=== PATIENT | female | born 1985 | race Caucasian/White ===

== ENCOUNTER 2022-12-13 10:08 | Emergency (ER) | payer BC ==
--- OUTSIDE RECORDS SUMMARY | 2022-12-13 10:11 | XMS REPORT | Continuity of Care Document ---
:1985 Author Organization [facility] t Address [address] [place] [address] Care Team Providers Name Role Phone Pcp, Patient Does Not Have A Primary Care Physician [id number] Jose Luis Koehler Attending Clinician Unavailable Nurse, [facility] Attending Clinician Unavailable Unknown, Attending Attending Clinician Unavailable UNKNOWN, ATTENDING Attending Clinician Unavailable Doctor Unassigned, [place] Attending Clinician Unavailable MICA CHEUNG Attending Clinician Unavailable Tonie Hartley Attending Clinician Mica Agee Attending Clinician Rosario Samaniego Attending Clinician ROSARIO DAVID Attending Clinician Unavailable Provider, [facility] Attending Clinician Unavailable REGLA BRANHAM Attending Clinician Unavailable Regla Branham MD Attending Clinician Payers Payer Name Policy Type Policy Number Effective Date Expiration Date S ource Problems Condition Condition Condition Status Onset Resolution Last Treating Co mments Source Name Details Category Date Date Treatment Clinician Date No known No known Disease Unive rs active active ity of problems problems [facility] Allergies, Adverse Reactions, Alerts Allergy Allergy Status Severity Reaction(s) Onset Inactive Treating Comm ents Source Name Type Date Date Clinician NO KNOWN Drug Active Univers ALLERGIE Class ity of S [facility] Social History Social Habit Start Date Stop Date Quantity Comments Source Exposure to 2022-12-03 2022-12-13 Not sure [facility] SARS-CoV-2 00:00:00 09:36:00 [place] [facility] (event) [place] Tobacco use and 2021-05-05 2021-05-05 Smokeless tobacco Un iversity of exposure 00:00:00 00:00:00 non-user [facility] Sex Ass[birth year] Universit y of 00:00:00 00:00:00 [facility] Smoking Status Start Date Stop Date Source Never smoked tobacco [facility] Medications Ordered Filled Start Stop Current Ordering Indication Dosage Frequency Signature Comments Components Source Medication Medication Date Date Medication? Clinician (SIG) Name Name hydrOXYzine 2020-08 Yes [id number] 25mg Take 1 Univers 25 mg 2-21 tablet by ity of tablet 00:00: mouth [place] 00 every 6 Medical (six) Branch hours as needed for Itching. hydrOXYzine 2020-08 Yes [id number] 25mg Take 1 Univers 25 mg 2-21 tablet by ity of tablet 00:00: mouth [place] 00 every 6 Medical (six) Branch hours as needed for Itching. hydrOXYzine 2020-08 Yes [id number] 25mg Take 1 Univers 25 mg 2-21 tablet by ity of tablet 00:00: mouth [place] 00 every 6 Medical (six) Branch hours as needed for Itching. predniSONE 2020-08- No [id number] Take 2 Univers 20 mg 2-21 12-30 tablets by ity of tablet 00:00: 05:59 mouth [place] 00 :00 daily for Medical 4 days, Branch THEN 1 tablet daily for 4 days. triamcinolo 2020- No [id number] 40mg Univers ne 05-13 ity of acetonide 19:15: 18:16 [place] (KENALOG) 00 :00 Medical injection Branch 40 mg triamcinolo 2020- No [id number] 40mg 40 mg, Univers ne 05-13 Intramuscu ity of acetonide 19:15: 18:16 [place], ONCE, [place] (KENALOG[place] 00 :00 1 dose, On Medi shelton injection Tue Branch 40 mg 05/13/21 at 1415, Routine methylPREDN 2020-[address] [facility] 05-13 mouth ity of (MEDROL, 00:00: SEE-INSTRU [place] as IRIS,) 4 mg 00 CTIONS. Medica l tablets follow Branch package directions methylPREDN 2020-[address] [facility] 05-13 mouth ity of (MEDROL, 00:00: SEE-INSTRU [place] as IRIS,) 4 mg 00 CTIONS. Medica l tablets follow Branch package directions methylPREDN 2020-[address] [facility] 05-13 mouth ity of (MEDROL, 00:00: SEE-INSTRU [place] as IRIS,) 4 mg 00 CTIONS. Medica l tablets follow Branch package directions methylPREDN 2020-[address] [facility] 05-13 mouth ity of (MEDROL, 00:00: SEE-INSTRU [place] as IRIS,) 4 mg 00 CTIONS. Medica l tablets follow Branch package directions hydrOXYzine 2020- No 25mg Take 1 Univers 25 mg 05-13 1009 tablet by ity of tablet 00:00: 04:59 mouth [place] 00 :00 every 6 Medical (six) Branch hours as needed for Itching for up to 10 days. triamcinolo 2020-2020- No Apply to [facility] 05-13 10-06 area(s) 2 ity of acetonide 00:00: 04:59 (two) [place] 0.1 % 00 :00 times Medical ointment daily for Branch 7 days. triamcinolo 2020-0 2020- No 40mg [facility] 05-05 ity of acetonide 21:00: 20:01 [place] (KENALOG) 00 :00 Medical injection Branch 40 mg triamcinolo 2020-2020- No 40mg 40 mg, [facility] 05-05 Intramuscu ity of acetonide 21:00: 20:01 [place], ONCE, [place] (KENALOG) 00 :00 1 dose, On Medi shelton injection Mon Branch 40 mg 05/05/21 at 1600, Routine cetirizine 2020-0 Yes 10mg Take 1 Univers (ZYRTEC) 10 9-20 tablet by ity of mg tablet 00:00: mouth [place] 00 daily. Medical Branch cetirizine Yes 10mg Take 1 Univers (ZYRTEC) 10 9-20 tablet by ity of mg tablet 00:00: mouth [place] 00 daily. Medical Branch cetirizine Yes 10mg Take 1 Univers (ZYRTEC) 10 9-20 tablet by ity of mg tablet 00:00: mouth [place] 00 daily. Medical Branch cetirizine Yes 10mg Take 1 Univers (ZYRTEC) 10 9-20 tablet by ity of mg tablet 00:00: mouth [place] 00 daily. Medical Branch cetirizine Yes 10mg Take 1 Univers (ZYRTEC) 10 9-20 tablet by ity of mg tablet 00:00: mouth [place] 00 daily. Medical Branch cetirizine Yes 10mg Take 1 Univers (ZYRTEC) 10 9-20 tablet by ity of mg tablet 00:00: mouth [place] 00 daily. Medical Branch cetirizine Yes 10mg Take 1 Univers (ZYRTEC) 10 9-20 tablet by ity of mg tablet 00:00: mouth [place] 00 daily. [facility] Vital Signs Vital Name Observation Time Observation Value Comments Source Systolic blood 2022-12-13 14:45:00 120 mm[Hg] Univer sity of pressure [facility] Diastolic blood 2022-12-13 14:45:00 79 mm[Hg] [facility] rs[facility] pressure [facility] Heart rate 2022-12-13 14:45:00 71 /min [facility] Body temperature 2022-12-13 14:45:00 37 Christianne [facility] Respiratory rate 2022-12-13 14:45:00 20 /min [facility] Body height 2022-12-13 14:45:00 167.6 cm [facility] Body weight 2022-12-13 14:45:00 111.041 kg [facility] BMI 2022-12-13 14:45:00 39.51 kg/m2 Universi ty of [place] [facility] Oxygen saturation in 2022-12-13 14:45:00 100 /min University of Arterial blood by [place] [facility] [place] Pulse oximetry Branch Systolic blood 2021-08-05 15:47:00 128 mm[Hg] Univer sity of pressure [place] [facility] Diastolic blood 2021-08-05 15:47:00 78 mm[Hg] Unive rsity of pressure [place] [facility] Heart rate 2021-08-05 15:47:00 66 /min [facility]i ty [facility] [place] [facility] Body temperature 2021-08-05 15:47:00 36.67 Christianne Univ ersity of [place] [facility] Respiratory rate 2021-08-05 15:47:00 17 /min Univ ersity of [place] [facility] Body height 2021-08-05 15:47:00 167.6 cm [facility] [place] [facility] Body weight 2021-08-05 15:47:00 104.327 kg [facility] [place] [facility] BMI 2021-08-05 15:47:00 37.12 kg/m2 Universi ty [facility] [place] [facility] Oxygen saturation in 2021-08-05 15:47:00 100 /min University of Arterial blood by [place] [facility] [place] Pulse oximetry Branch Oxygen saturation in 2021-05-13 17:57:00 99 /min University of Arterial blood by [place] [facility] Pulse oximetry Branch Systolic blood 2021-05-13 17:57:00 109 mm[Hg] Univer sity of pressure [place] [facility] Diastolic blood 2021-05-13 17:57:00 69 mm[Hg] Unive rsity of pressure [place] [facility] Heart rate 2021-05-13 17:57:00 76 /min [facility]i ty [facility] [place] [facility] Body temperature 2021-05-13 17:57:00 37.11 Christianne Univ ersity of [place] [facility] Respiratory rate 2021-05-13 17:57:00 16 /min Univ ersity of [place] [facility] Body height 2021-05-13 17:57:00 167.6 cm [facility]i [facility] [place] [facility] Body weight 2021-05-13 17:57:00 104.327 kg [facility]i [facility] [place] [facility] BMI 2021-05-13 17:57:00 37.12 kg/m2 [facility]i ty [facility] [place] [facility] Systolic blood 2021-05-05 19:52:00 112 mm[Hg] Univer sity of pressure [facility] Diastolic blood 2021-05-05 19:52:00 70 mm[Hg] Unive rsity of pressure [facility] Heart rate 2021-05-05 19:52:00 73 /min [facility] Body temperature 2021-05-05 19:52:00 36.61 Christianne [facility] Respiratory rate 2021-05-05 19:52:00 16 /min [facility] Body height 2021-05-05 19:52:00 167.6 cm [facility] Body weight 2021-05-05 19:52:00 104.418 kg [facility] BMI 2021-05-05 19:52:00 37.16 kg/m2 [facility] Oxygen saturation in 2021-05-05 19:52:00 99 /min [facility] Arterial blood by [facility] [place] [facility] Pulse oximetry Branch Procedures Procedure Date / Time Performed Performing Clinician [facility] e ASSIGNMENT OF BENEFITS 2022-12-13 14:37:57 Doctor Unassigned, No [facility] ASSIGNMENT OF BENEFITS 2021-05-13 17:49:21 Doctor Unassigned, No [facility] Encounters Start End Encounter Admission Attending Care Care Encounter Source Date/Time Date/Time Type Type Clinicians Facility Department ID 2022-07-27 Outpatient Koehler, [facility] [id number] Common 12:56:01 [facility] [address] [facility] 2022-06-25 Outpatient Koehler, [facility] [id number] Common 09:41:02 [facility] [address] [facility] 2022-06-04 Outpatient Koehler, [facility] [id number] Common 13:12:02 [facility] 2022-12-13 2022-12-13 Nurse Nurse, [facility] [id number] [facility] 09:45:00 10:05:00 Visit Unknown, Attending HEALTH [id number] ity of [place] [id number] [place] as KEMAR?BLEA [id number] [address] MEDICAL OFFICE BUILDING 2022-12-13 2022-12-13 Outpatient R UNKNOWN, [facility] [id number] Univers 09:45:00 09:45:00 ATTENDING ity [facility] 2022-12-13 2022-12-13 Outpatient R UNKNOWN, [facility] [id number] Univers 09:40:00 09:40:00 ATTENDING ity [facility] 2022-12-13 2022-12-13 Orders Doctor EDGE [id number] Univers 00:00:00 00:00:00 Only Unassigned, THU[facility] [id number] [facility] [id number] [place] [phone] [address] 2021-08-05 2021-08-05 [facility] [id number] Univers 10:00:00 10:13:35 [facility] 2021-08-05 2021-08-05 Urgent Tonie Constantino [facility] [id number] Univers 10:00:00 10:13:35 [facility] [id number] ity [facility] [id number] [place] KEMAR?BLEA [id number] [address] [facility] 2021-08-05 2021-08-05 Outpatient R [facility] [id number] Univers 10:00:00 10:00:00 [id number] ity [facility] 2021-05-13 2021-05-13 [facility] [id number] Univers 12:50:14 13:22:46 Care Rosario [email or web address] [facility] [id number] ity of [place] [id number] [place] as Kemar?Blea [id number] [address] Medical Office Building 2021-05-13 2021-05-13 Outpatient R [facility] [id number] Univers 13:00:00 13:00:00 [id number] ity [facility] 2021-05-132021-05-13 Outpatient R JOANN [facility] [id number] Univers 13:00:00 13:00:00 ROSARIO lynch o f [facility] 2021-05-13 2021-05-13 Orders Doctor KELY [id number] Univers 00:00:00 00:00:00 Only Unassigned, THUY [id number] ity of [place] [facility] [id number] [place] as [phone] [address] 2021-05-09 2021-05-09 Telephone Provider, [facility] [id number] Univers 00:00:00 00:00:00 [facility] [id number] it y of Urgent Care [place] [id number] [place] Kemar?Blea [id number] [address] Medical Office Building 2021-05-05 2021-05-05 [facility] [id number] Univers 18:00:00 18:00:00 REGLA itmonserrat of [facility] 2021-05-05 2021-05-05 [facility] [id number] Univers 14:42:20 15:02:20 Care [facility] [id number] it y of [place] [id number] [place] as Kemar?Blea [id number] [address] Medical Office Building Results This patient has no known results.
[2022-12-13] MEDS ORDERED: FAMOTIDINE 20 MG/2 ML VIAL IV ONE (10:44)
[2022-12-13] MEDS ORDERED: NA CHLORIDE 0.9% 1,000 ML ONE (10:44)
[2022-12-13 10:57] LABS: Specific Gravity < 1.005 (1.005-1.030)
[2022-12-13 11:01] LABS: Specific Gravity < 1.005 (1.005-1.030); Urine Bacteria 20-50 /HPF (<20); Urine Bilirubin NEGATIVE (Negative); Urine Blood Negative (Negative); Urine Clarity Turbid (Clear); Urine Color Light-Yellow (Yellow); Urine Glucose NEGATIVE (Negative); Urine Protein NEGATIVE (Negative); Urine Urobilinogen Normal (Normal); Urine pH 6.5 (5.0-7.0)
[2022-12-13 11:03] LABS: Absolute Lymphocytes (CBC) 1.5 K/uL (0.7-4.9); Hematocrit 31.3 % (36.0-45.0); Lymphocytes % 24.2 % (15.3-44.8); MCV 72.3 fL (80-100); MPV 8.7 fL (7.6-11.3); RBC Red Blood Cell Count 4.33 M/uL (3.86-4.86)
[2022-12-13] MEDS ORDERED: NA CHLORIDE 0.9% 50 ML ONE (11:13)
[2022-12-13] MEDS ORDERED: CEFOXITIN SODIUM 1 GM/VIAL ONE (11:13)
[2022-12-13 11:27] LABS: Albumin 3.7 g/dL (3.4-5.0); Bilirubin Total 0.9 mg/dL (0.2-1.0); Potassium 3.9 mEq/L (3.5-5.1); Protein, Total 7.1 g/dL (6.4-8.2)
--- NOTE | 2022-12-13 11:43 | RAD REPORT ---
EXAM DESCRIPTION: US - Abdomen Exam Limited - 12/13/2022 11:31 am CLINICAL HISTORY: ABD PAIN COMPARISON: No comparisons FINDINGS: The gallbladder demonstrates no gallstones. No pericholecystic fluid or gallbladder wall t hickening. The common bile duct is normal measuring 4 mm. The liver demonstrates no findings of intrahepatic biliary dilatation. IMPRESSION: Unremarkable examination.
--- NOTE | 2022-12-13 12:24 | ER ---
Nurse's Notes [facility] Name: Araceli Min Age: 37 yrs Sex: Female : 1985 Arrival Date: 12/13/2022 Time: 10:08 Bed 17 Private MD: Jose Luis Koehler Diagnosis: UTI/ Urinary tract infection, site not specified;Abdominal pain, Generalized;Iron deficiency anemia, unspecified Presentation: 12/13 10:16 Chief complaint: Patient states: sharp pain in right mid back radiating under her right iw ribs , started on , denies n/v/d, denies urinary symptoms. Coronavirus screen: At this time, the client does not indicate any symptoms associated with coronavirus-19. Ebola Screen: Patient negative for fever greater than or equal to 101.5 degrees Fahrenheit, and additional compatible Ebola Virus Disease symptoms Patient denies exposure to infectious person. Patient denies travel to an Ebola-affected area in the 21 days before illness onset. No symptoms or risks identified at this time. Initial Sepsis Screen: Does the patient meet any 2 criteria? No. Patient's initial sepsis screen is negative. Does the patient have a suspected source of infection? No. Patient's initial sepsis screen is negative. Risk Assessment: Do you want to hurt yourself or someone else? Patient reports no desire to harm self or others. Onset of symptoms was December 10, 2022. 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 - Social history:: Smoking status: Reported history of juuling and/or vaping. Screenin:28 [facility] ED Fall Risk Assessment (Adult) History of falling in the last 3 months, kc6 including since admission No falls in past 3 months (0 pts) Confusion or Disorientation No (0 pts) Intoxicated or Sedated No (0 pts) Impaired Gait No (0 pts) Mobility Assist Device Used No (0 pt) Altered Elimination No (0 pt) Score/Fall Risk Level 0 - 2 = Low Risk Oriented to surroundings, Maintained a safe environment, Educated pt \T\ family on fall prevention, incl call for assistance when getting out of bed, Assessed \T\ reinforced patient's understanding of fall precautions, Hourly rounding (assess needs \T\ fall precautionary measures) done. Abuse screen: Denies threats or abuse. Denies injuries from another. Nutritional screening: No deficits noted. Tuberculosis screening: No symptoms or risk factors identified. Assessment: 10:28 General: Appears in no apparent distress. uncomfortable, Behavior is calm, cooperative, kc6 appropriate for age. Pain: Complains of pain in right upper quadrant and right lower quadrant, right flank Pain currently is 7 out of 10 on a pain scale. Quality of pain is described as sharp, stabbing. Neuro: Ryan Agitation-Sedation Scale (RASS): 0 - Alert and Calm Level of Consciousness is awake, alert, obeys commands, Oriented to person, place, time, situation, Appropriate for age. Cardiovascular: Capillary refill < 3 seconds. Respiratory: Airway is patent Trachea midline Respiratory effort is even, unlabored, Respiratory pattern is regular, symmetrical. GI: No signs and/or symptoms were reported involving the gastrointestinal system. Abdomen is flat, non-distended, Bowel sounds present X 4 quads. Abd is soft X 4 quads Abdomen is tender to palpation in right upper quadrant and right lower quadrant Patient currently denies diarrhea, nausea, vomiting. : No signs and/or symptoms were reported regarding the genitourinary system. Urine is clear, Denies burning with urination, urinary frequency, urgency. EENT: No signs and/or symptoms were reported regarding the EENT system. Derm: No signs and/or symptoms reported regarding the dermatologic system. Skin is intact, Skin is pink, warm \T\ dry. Musculoskeletal: No signs and/or symptoms reported regarding the musculoskeletal system. Circulation, motion, and sensation intact. Capillary refill < 3 seconds, Range of motion: intact in all extremities. 11:28 Reassessment: Patient appears in no apparent distress at this time. No changes from kc6 previously documented assessment. Patient and/or family updated on plan of care and expected duration. Pain level reassessed. Patient is alert, oriented x 3, equal unlabored respirations, skin warm/dry/pink. 12:38 Reassessment: Patient appears in no apparent distress at this time. Patient and/or iw family updated on plan of care and expected duration. Pain level reassessed. Patient is alert, oriented x 3, equal unlabored respirations, skin warm/dry/pink. Vital Signs: 10:16 BP 129 / 87; Pulse 69; Resp 16; Temp 98.1; Pulse Ox 100% on R/A; Weight 108.86 kg; iw Height 5 ft. 6 in. ; Pain 7/10; 10:30 BP 128 / 79; Pulse 66; Resp 18 S; Pulse Ox 96% on R/A; Pain 7/10; kc6 11:28 BP 104 / 78; Pulse 73; Resp 19 S; Pulse Ox 96% on R/A; kc6 12:37 BP 117 / 67; Pulse 58; Resp 16; Pulse Ox 100% on R/A; iw 10:16 Body Mass Index 38.74 (108.86 kg, 167.64 cm) iw 10:16 Pain Scale: Adult iw 10:30 Pain Scale: Adult kc6 ED Course: 10:11 Patient arrived in ED. mr 10:11 Jose Luis Koehler DO is Private Physician. mr 10:18 Triage completed. iw 10:19 Arm band placed on. iw 10:23 Anika Sauer FNP-C is PHCP. snw 10:23 Ziyad Stover MD is Attending Physician. snw 10:25 Taylor Cleary, NIDA is Primary Nurse. kc6 10:28 Patient has correct armband on for positive identification. Bed in low position. Call kc6 light in reach. Side rails up X 1. Adult w/ patient. 10:51 Inserted saline lock: 20 gauge in right antecubital area, using aseptic technique. kc6 Blood collected. 11:33 US Abdomen Limited In Process Unspecified. EDMS 12:23 Jose Luis Koehler DO is Referral Physician. snw 12:37 No provider procedures requiring assistance completed. IV discontinued, intact, iw bleeding controlled, No redness/swelling at site. Pressure dressing applied. Administered Medications: 10:51 Drug: NS 0.9% IV 1000 ml Route: IV; Rate: 1 bolus; Site: right antecubital; kc6 12:47 Follow up: Response: No adverse reaction; IV Status: Completed infusion kc6 10:51 Drug: Famotidine IVP 20 mg Route: IVP; Site: right antecubital; kc6 11:15 Follow up: Response: No adverse reaction; Pain is decreased kc6 11:12 Drug: cefOXitin IVPB 1 grams Route: IVPB; Infused Over: 30 mins; Site: right kc6 antecubital; 11:45 Follow up: Response: No adverse reaction; IV Status: Completed infusion; IV Intake: [id number] Medication: 12:48 VIS not applicable for this client. iw Intake: 11:45 IV: 50ml; Total: 50ml. kc6 Outcome: 12:24 Discharge ordered by MD. snbrittny 12:47 Discharged to home ambulatory, with family. iw 12:47 Condition: good 12:47 Discharge instructions given to patient, family, Instructed on discharge instructions, follow up and referral plans. medication usage, Demonstrated understanding of instructions, follow-up care, medications, Prescriptions given X 3. 12:48 Patient left the ED. iw Signatures: Dispatcher [employer] EDMS Anika Sauer, SPECIAL DIET COOK-C SPECIAL DIET COOK-Shyann ColePaula Michelle Mcneil, RN RN Taylor Mooney RN RN kc6
--- NOTE | 2022-12-13 12:25 | EDPHYS ---
Physician Documentation [facility] Name: Araceli Min Age: 37 yrs Sex: Female : 1985 Arrival Date: 12/13/2022 Time: 10:08 Bed 17 Private MD: [facility] ED Physician Ziyad Stover HPI: 12/13 11:08 This 37 yrs old Female presents to ER via Ambulatory with complaints of Abdominal Pain, snw Back Pain. 11:08 The patient presents with abdominal pain in the epigastric area, in the upper abdomen, snw in the right upper quadrant. Onset: The symptoms/episode began/occurred suddenly, 3 day(s) ago, and became persistent last night. The symptoms radiate to right back. Associated signs and symptoms: Pertinent positives: nausea. The symptoms are described as sharp, stabbing. Severity of pain: At its worst the pain was moderate. The patient has not experienced similar symptoms in the past. just started mounjaro. 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 - Social history:: Smoking status: Reported history of juuling and/or vaping. ROS: 11:07 Constitutional: Negative for fever, chills, and weight loss, Eyes: Negative for injury, snw pain, redness, and discharge, ENT: Negative for injury, pain, and discharge, Neck: Negative for injury, pain, and swelling, Cardiovascular: Negative for chest pain, palpitations, and edema, Respiratory: Negative for shortness of breath, cough, wheezing, and pleuritic chest pain, : Negative for injury, bleeding, discharge, and swelling, MS/Extremity: Negative for injury and deformity, Skin: Negative for injury, rash, and discoloration, Neuro: Negative for headache, weakness, numbness, tingling, and seizure, Psych: Negative for depression, anxiety, suicide ideation, homicidal ideation, and hallucinations. 11:07 Abdomen/GI: Positive for abdominal pain, nausea. 11:07 Back: Positive for radiated pain, of the right subscapular area and right mid back. Exam: 11:03 Skin: Warm, dry with normal turgor. Normal color with no rashes, no lesions, and no snw evidence of cellulitis. Neuro: Awake and alert, GCS 15, oriented to person, place, time, and situation. Cranial nerves II-XII grossly intact. Motor strength 5/5 in all extremities. Sensory grossly intact. Cerebellar exam normal. Normal gait. Psych: Awake, alert, with orientation to person, place and time. Behavior, mood, and affect are within normal limits. 11:03 Constitutional: This is a well developed, well nourished patient who is awake, alert, and in no acute distress. Head/Face: Normocephalic, atraumatic. Eyes: Pupils equal round and reactive to light, extra-ocular motions intact. Lids and lashes normal. Conjunctiva and sclera are non-icteric and not injected. Cornea within normal limits. Periorbital areas with no swelling, redness, or edema. ENT: Nares patent. No nasal discharge, no septal abnormalities noted. Tympanic membranes are normal and external auditory canals are clear. Oropharynx with no redness, swelling, or masses, exudates, or evidence of obstruction, uvula midline. Mucous membranes moist. Neck: Trachea midline, no thyromegaly or masses palpated, and no cervical lymphadenopathy. Supple, full range of motion without nuchal rigidity, or vertebral point tenderness. No Meningismus. Chest/axilla: Normal chest wall appearance and motion. Nontender with no deformity. No lesions are appreciated. Cardiovascular: Regular rate and rhythm with a normal S1 and S2. No gallops, murmurs, or rubs. Normal PMI, no JVD. No pulse deficits. Respiratory: Lungs have equal breath sounds bilaterally, clear to auscultation and percussion. No rales, rhonchi or wheezes noted. No increased work of breathing, no retractions or nasal flaring. Abdomen/GI: Soft, mildly tender to right upper and lower quad, with normal bowel sounds. No distension or tympany. No guarding or rebound. 11:04 Back: No spinal tenderness. No costovertebral tenderness. Full range of motion. MS/ snw Extremity: Pulses equal, no cyanosis. Neurovascular intact. Full, normal range of motion. Vital Signs: 10:16 BP 129 / 87; Pulse 69; Resp 16; Temp 98.1; Pulse Ox 100% on R/A; Weight 108.86 kg; iw Height 5 ft. 6 in. ; Pain 7/10; 10:30 BP 128 / 79; Pulse 66; Resp 18 S; Pulse Ox 96% on R/A; Pain 7/10; kc6 11:28 BP 104 / 78; Pulse 73; Resp 19 S; Pulse Ox 96% on R/A; kc6 12:37 BP 117 / 67; Pulse 58; Resp 16; Pulse Ox 100% on R/A; iw 10:16 Body Mass Index 38.74 (108.86 kg, 167.64 cm) iw 10:16 Pain Scale: Adult iw 10:30 Pain Scale: Adult kc6 MDM: 10:24 Patient medically screened. snw 12:50 Differential diagnosis: bowel obstruction, cholecystitis, Cholelithiasis, gastritis, snw Hepatitis, pancreatitis, Pyelonephritis, Ureterolithiasis. Data reviewed: vital signs, nurses notes, lab test result(s), radiologic studies. I considered the following discharge prescriptions or medication management in the emergency department Medications were administered in the Emergency Department. See MAR. Counseling: I had a detailed discussion with the patient and/or guardian regarding: the historical points, exam findings, and any diagnostic results supporting the discharge/admit diagnosis, lab results, radiology results, the need for outpatient follow up, for definitive care, to return to the emergency department if symptoms worsen or persist or if there are any questions or concerns that arise at home. Response to treatment: the patient's symptoms have mildly improved after treatment. Special discussion: Based on the patient's Hx, exam, and Dx evaluation, there is no indication for emergent surgery or inpatient Tx. It is understood by the patient/guardian that if the Sx's persist or worsen they need to return immediately for re-evaluation. Based on the history and exam findings, there is no indication for further emergent testing or inpatient evaluation. I discussed with the patient/guardian the need to see the primary care provider for further evaluation of the symptoms. 12/13 10:34 Order name: CBC with Diff; Complete Time: 11:11 snw 12/13 10:34 Order name: CMP; Complete Time: 11:28 snw 12/13 10:34 Order name: Lipase; Complete Time: 11:28 snw 12/13 10:34 Order name: Test, Urine; Complete Time: 11:02 snw 12/13 10:34 Order name: Urinalysis w/ reflexes; Complete Time: 11:02 snw 12/13 10:34 Order name: Troponin High Sensitivity; Complete Time: 11:28 snw 12/13 11:02 Order name: Test, Serum; Complete Time: 11:38 snw 12/13 10:34 Order name: US Abdomen Limited; Complete Time: 11:59 snw 12/13 10:34 Order name: IV Saline Lock; Complete Time: 10:51 snw 12/13 10:34 Order name: Labs collected and sent; Complete Time: 10:51 snw Administered Medications: 10:51 Drug: NS 0.9% IV 1000 ml Route: IV; Rate: 1 bolus; Site: right antecubital; kc6 12:47 Follow up: Response: No adverse reaction; IV Status: Completed infusion 6 10:51 Drug: Famotidine IVP 20 mg Route: IVP; Site: right antecubital; kc6 11:15 Follow up: Response: No adverse reaction; Pain is decreased kc6 11:12 Drug: cefOXitin IVPB 1 grams Route: IVPB; Infused Over: 30 mins; Site: right kc6 antecubital; 11:45 Follow up: Response: No adverse reaction; IV Status: Completed infusion; IV Intake: [id number] Disposition: 12:48 I reviewed the patient's care provided by the Advanced Practice Provider and agree with jr11 the diagnosis and treatment plan. Disposition Summary: 12/13/22 12:24 Discharge Ordered Location: Home snw Condition: Stable snw Diagnosis - UTI/ Urinary tract infection, site not specified snw - Abdominal pain, Generalized snw - Iron deficiency anemia, unspecified snw Followup: snw - With: Emergency Department - When: As needed - Reason: Worsening of condition Followup: snw - With: Jose Luis Koehler, DO - When: 1 - 2 days - Reason: Recheck today's complaints, Continuance of care, Re-evaluation by your physician Discharge Instructions: - Discharge Summary Sheet snw - Abdominal Pain, Adult snw - Iron Deficiency Anemia, Adult snw - Iron-Rich Diet snw - Urinary Tract Infection, Adult snw - Rehydration, Adult snw Forms: - Work release form snw - Medication Reconciliation Form snw - Thank You Letter snw - Antibiotic Education snw - Prescription Opioid Use snw Prescriptions: - Augmentin 875-125 mg Oral Tablet - take 1 tablet by ORAL route every 12 hours for 10 days; 20 tablet; Refills: 0, snw Product Selection Permitted - promethazine 25 mg Oral Tablet - take 1 tablet by ORAL route every 6 hours As needed; 20 tablet; Refills: 0, snw Product Selection Permitted - dicyclomine 20 mg Oral Tablet - take 1 tablet by ORAL route 3 times per day; 30 tablet; Refills: 0, Product snw Selection Permitted 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 Head/Face: Normocephalic, atraumatic. Eyes: Pupils equal round and reactive to light, extra-ocular motions intact. Lids and lashes normal. Conjunctiva and sclera are non-icteric and not injected. Cornea within normal limits. Periorbital areas with no swelling, redness, or edema. ENT: Nares patent. No nasal discharge, no septal abnormalities noted. Tympanic membranes are normal and external auditory canals are clear. Oropharynx with no redness, swelling, or masses, exudates, or evidence of obstruction, uvula midline. Mucous membranes moist. Neck: Trachea midline, no thyromegaly or masses palpated, and no cervical lymphadenopathy. Supple, full range of motion without nuchal rigidity, or vertebral point tenderness. No Meningismus. Chest/axilla: Normal chest wall appearance and motion. Nontender with no deformity. No lesions are appreciated. Cardiovascular: Regular rate and rhythm with a normal S1 and S2. No gallops, murmurs, or rubs. Normal PMI, no JVD. No pulse deficits. Respiratory: Lungs have equal breath sounds bilaterally, clear to auscultation and percussion. No rales, rhonchi or wheezes noted. No increased work of breathing, no retractions or nasal flaring. Abdomen/GI: Soft, non-tender, with normal bowel sounds. No distension or tympany. No guarding or rebound. No evidence of tenderness throughout. snw 11: 11:03 Back: pain, that is moderate, of the right scapular area, normal spinal alignment snw noted, CVA tenderness, is absent, snw : 11:03 Musculoskeletal/extremity: chronically dislocated left shoulder. snw snw : 11:03 Neuro: hard of hearing, snw snw
[2022-12-13 13:03] VITALS: TEMP 98.1
[2022-12-13 13:16] VITALS: BP 117/67; O2SAT 100
== END 2022-12-13 12:48 | disposition home or self-care (01) ==
LOC: ER 10:08
DX: N39.0 Urinary tract infection, site not specified (principal); D50.9 Iron deficiency anemia, unspecified
CPT/HCPCS: 85025; 81001; 36415; 84703; 81025; 84484; 83690; 80053; 76705; J0694; J7030; 96361; 96365; 96375; 99284

== ENCOUNTER → 2023-08-31 | Emergency (ER) | payer BC ==
--- OUTSIDE RECORDS SUMMARY | 2023-08-31 09:04 | XMS REPORT | Continuity of Care Document ---
Author Name Unknown Address [address] [facility] [address] [place] [address] [facility] thconnect Address [address] 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 Name Role Phone PCP, PATIENT DOES NOT HAVE A Primary Care Physic micheline Unavailable Jose Luis Koehler Attending Clinician Unavailable Elizabeth Bruno Attending Clinician REGLA Vincent Attending Clinician Unavailable Nurse, [facility] Attending Clinician Un available Unknown, Attending Attending Clinician Unavailab le UNKNOWN, ATTENDING Attending Clinician Unavailab le Doctor Unassigned, Susan Moore Attending Clinician U navailable MICA CHEUNG Attending Clinician Unavailable Tonie Hartley Attending Clinician [phone] Mica Agee Attending Clinician [phone] Rosario Samaniego Attending Clinician [phone] ROSARIO DUNLAP Attending Clinician Unavailab dio Provider, [facility] Attending Clinician Unavailable Regla Hammond MD Attending Clinician KNOW, DOES_NOT Admitting Clinician Unavailable Payers Payer Name Policy Type Policy Number Effective Date Expirati on Date Source [facility] [id number] 2015 00:00:00 Problems Condition Name Condition Details Condition Category Status Onset Date Resolution Date Last Treatment Date Treating Clinician Comments Source No known active problems No known active problems Disease [facility] Allergies, Adverse Reactions, Alerts Allergy Name Allergy Type Status Severity Reaction(s) Onset Date Inactive Date Treating Clinician Comments Source No Known Allergie s DA Active U 09-08 00:00: 00 [facility] NO KNOWN ALLERGIE S Drug Class Active [facility] Social History Social Habit Start Date Stop Date Quantity Comments Source Exposure to SARS-CoV-2 (event) 2022-12-03 00:00:00 2022-12-13 09:36:00 Not sure [facility] Tobacco use and exposure 2021-05-05 00:00:00 2021-05-05 00:00:00 Smokeless tobacco non-user [facility] Sex Assigned At 1985 00:00:00 1985 00:00:00 [facility] Smoking Status Start Date Stop Date Source Never smoked tobacco [facility] Medications Ordered Medication Name Filled Medication Name Start Date Stop Date Current Medication? Ordering Clinician Indication Dosage Frequency Signature (SIG) Comments Components Source hydrOXYzine 25 mg tablet 2020-08 00:00: 00 Yes [id number] 25mg Take 1 tablet by mouth every 6 (six) hours as needed for Itching. [facility] hydrOXYzine 25 mg tablet 2020-08 00:00: 00 Yes [id number] 25mg Take 1 tablet by mouth every 6 (six) hours as needed for Itching. [facility] hydrOXYzine 25 mg tablet 2020-08 00:00: 00 Yes [id number] 25mg Take 1 tablet by mouth every 6 (six) hours as needed for Itching. [facility] hydrOXYzine 25 mg tablet 2020-08 00:00: 00 Yes [id number] 25mg Take 1 tablet by mouth every 6 (six) hours as needed for Itching. [facility] predniSONE 20 mg tablet 2020-08 00:00: 00 08-14 05:59 :00 No [id number] Take 2 tablets by mouth daily for 4 days, THEN 1 tablet daily for 4 days. [facility] triamcinolo ne acetonide (KENALOG) injection 40 mg 05-13 19:15: 00 05-13 18:16 :00 No [id number] 40mg [facility] triamcinolo ne acetonide (KENALOG) injection 40 mg 05-13 19:15: 00 05-13 18:16 :00 No [id number] 40mg 40 mg, Intramuscu lar, ONCE, 1 dose, On Wed05/13/21 at 1415, Routine [facility] methylPREDN ISolone (MEDROL, IRIS,) 4 mg tablets 05-13 00:00: 00 Yes Take by mouth SEE-INSTRU CTIONS. follow package directions [facility] methylPREDN ISolone (MEDROL, IRIS,) 4 mg tablets 05-13 00:00: 00 Yes Take by mouth SEE-INSTRU CTIONS. follow package directions [facility] methylPREDN ISolone (MEDROL, IRIS,) 4 mg tablets 05-13 00:00: 00 Yes Take by mouth SEE-INSTRU CTIONS. follow package directions [facility] methylPREDN ISolone (MEDROL, IRIS,) 4 mg tablets 05-13 00:00: 00 Yes Take by mouth SEE-INSTRU CTIONS. follow package directions [facility] methylPREDN ISolone (MEDROL, IRIS,) 4 mg tablets 05-13 00:00: 00 Yes Take by mouth SEE-INSTRU CTIONS. follow package directions [facility] hydrOXYzine 25 mg tablet 05-13 00:00: 00 05-24 04:59 :00 No [id number] 25mg Take 1 tablet by mouth every 6 (six) hours as needed for Itching for up to 10 days. [facility] triamcinolo ne acetonide 0.1 % ointment 05-13 00:00: 00 05-21 04:59 :00 No [id number] Apply to area(s) 2 (two) times daily for 7 days. [facility] triamcinolo ne acetonide (KENALOG) injection 40 mg 05-05 21:00: 00 05-05 20:01 :00 No [id number] 40mg [facility] triamcinolo ne acetonide (KENALOG) injection 40 mg 05-05 21:00: 00 05-05 20:01 :00 No [id number] 40mg 40 mg, Intramuscu lar, ONCE, 1 dose, On Wed05/05/21 at 1600, Routine [facility] cetirizine (ZYRTEC) 10 mg tablet 05-05 00:00: 00 Yes 10mg Take 1 tablet by mouth daily. [facility] cetirizine (ZYRTEC) 10 mg tablet 05-05 00:00: 00 Yes 10mg Take 1 tablet by mouth daily. [facility] cetirizine (ZYRTEC) 10 mg tablet 05-05 00:00: 00 Yes 10mg Take 1 tablet by mouth daily. [facility] cetirizine (ZYRTEC) 10 mg tablet 05-05 00:00: 00 Yes 10mg Take 1 tablet by mouth daily. [facility] cetirizine (ZYRTEC) 10 mg tablet 05-05 00:00: 00 Yes 10mg Take 1 tablet by mouth daily. [facility] cetirizine (ZYRTEC) 10 mg tablet 05-05 00:00: 00 Yes 10mg Take 1 tablet by mouth daily. [facility] cetirizine (ZYRTEC) 10 mg tablet 05-05 00:00: 00 Yes [id number] 10mg Take 1 tablet by mouth daily. [facility] cetirizine (ZYRTEC) 10 mg tablet 05-05 00:00: 00 Yes [id number] 10mg Take 1 tablet by mouth daily. [facility] Vital Signs Vital Name Observation Time Observation Value Comments Tracey graham Systolic blood pressure 2022-12-13 14:45:00 120 mm[Hg] [facility] Diastolic blood pressure 2022-12-13 14:45:00 79 mm[Hg] [facility] Heart rate 2022-12-13 14:45:00 71 /min [facility] Body temperature 2022-12-13 14:45:00 37 Christianne [facility] Respiratory rate 2022-12-13 14:45:00 20 /min [facility] Body height 2022-12-13 14:45:00 167.6 cm [facility] Body weight 2022-12-13 14:45:00 111.041 kg [facility] BMI 2022-12-13 14:45:00 39.51 kg/m2 [facility] Oxygen saturation in Arterial blood by Pulse oximetry 2022-12-13 14:45:00 100 /min [facility] Body temperature 2021-08-05 15:47:00 36.67 Christianne [facility] Respiratory rate 2021-08-05 15:47:00 17 /min [facility] Body height 2021-08-05 15:47:00 167.6 cm [facility] Body weight 2021-08-05 15:47:00 104.327 kg [facility] BMI 2021-08-05 15:47:00 37.12 kg/m2 [facility] Oxygen saturation in Arterial blood by Pulse oximetry 2021-08-05 15:47:00 100 /min [facility] Systolic blood pressure 2021-08-05 15:47:00 128 mm[Hg] [facility] Diastolic blood pressure 2021-08-05 15:47:00 78 mm[Hg] [facility] Heart rate 2021-08-05 15:47:00 66 /min [facility] Systolic blood pressure 2021-05-13 17:57:00 109 mm[Hg] [facility] Diastolic blood pressure 2021-05-13 17:57:00 69 mm[Hg] [facility] Heart rate 2021-05-13 17:57:00 76 /min [facility] Body temperature 2021-05-13 17:57:00 37.11 Christianne [facility] Respiratory rate 2021-05-13 17:57:00 16 /min [facility] Body height 2021-05-13 17:57:00 167.6 cm [facility] Body weight 2021-05-13 17:57:00 104.327 kg [facility] BMI 2021-05-13 17:57:00 37.12 kg/m2 [facility] Oxygen saturation in Arterial blood by Pulse oximetry 2021-05-13 17:57:00 99 /min [facility] Systolic blood pressure 2021-05-05 19:52:00 112 mm[Hg] [facility] Diastolic blood pressure 2021-05-05 19:52:00 70 mm[Hg] [facility] Heart rate 2021-05-05 19:52:00 73 /min [facility] Body temperature 2021-05-05 19:52:00 36.61 Christianne [facility] Respiratory rate 2021-05-05 19:52:00 16 /min [facility] Body height 2021-05-05 19:52:00 167.6 cm [facility] Body weight 2021-05-05 19:52:00 104.418 kg [facility] BMI 2021-05-05 19:52:00 37.16 kg/m2 [facility] Oxygen saturation in Arterial blood by Pulse oximetry 2021-05-05 19:52:00 99 /min [facility] Procedures Procedure Date / Time Performed Performing Clinicia n Source ASSIGNMENT OF BENEFITS 2022-12-13 14:37:57 Docto r Unassigned, Susan Moore [facility] ASSIGNMENT OF BENEFITS 2021-05-13 17:49:21 Docto r Unassigned, Susan Moore [facility] Encounters Start Date/Time End Date/Time Encounter Type Admission Type Attending [facility] Care Facility Care Department Encounter ID Source 2022-07-27 12:56:01 Outpatient Rodo [facility] [id number] [facility] 2022-06-25 09:41:02 Outpatient Rodo [facility] [id number] [facility] 2022-06-04 13:12:02 Outpatient Rodo [facility] [id number] [facility] 2023-08-03 12:33:00 2023-08-03 12:33:00 Outpatient Elizabeth Alvarez [facility] [id number] [facility] 2022-12-13 09:45:00 2022-12-13 10:02:04 Outpatient REGLA ROA [facility] [id number] [facility] 2022-12-13 09:45:00 2022-12-13 10:02:04 [facility] Unknown, Attending [facility] [id number]..[id number] [facility] 2022-12-13 09:40:00 2022-12-13 09:40:00 Outpatient R UNKNOWN, ATTENDING [facility] [id number] [facility] 2022-12-13 00:00:00 2022-12-13 00:00:00 Orders Only Doctor Unassigned, Susan Moore [address][id number] [facility] 2021-08-05 10:00:00 2021-08-05 10:13:35 Outpatient R MICA CHEUNG [facility] [id number] [facility] 2021-08-05 10:00:00 2021-08-05 10:13:35 Urgent Care Tonie Constantino [facility] Counts include 234 beds at the [facility] [id number] [facility] 2021-08-05 10:00:00 2021-08-05 10:00:00 Outpatient R [facility] [id number] [facility] 2021-05-13 12:50:14 2021-05-13 13:22:46 Urgent Care Rosario Dunlap [facility] [id number] [id number] [facility] 2021-05-13 13:00:00 2021-05-13 13:00:00 Outpatient R [facility] [id number] [facility] 2021-05-13 13:00:00 2021-05-13 13:00:00 Outpatient R ROSRAIO DUNLAP [facility] [id number] [facility] 2021-05-13 00:00:00 2021-05-13 00:00:00 Orders Only Doctor Unassigned, Susan Moore [facility] ..114 [id number] [facility] 2021-05-09 00:00:00 2021-05-09 00:00:00 Telephone Provider, [facility] [id number] [id number] [facility] 2021-05-05 18:00:00 2021-05-05 18:00:00 Outpatient R REGLA HAMMOND [facility] [id number] [facility] 2021-05-05 14:42:20 2021-05-05 15:02:20 Urgent Care Regla Hammond [facility] [id number] [id number] [facility]
--- NOTE | 2023-08-31 10:00 | EDPHYS ---
Physician Documentation [facility] Name: rAaceli Min Age: 38 yrs Sex: Female : 1985 Arrival Date: 08/31/2023 Time: 08:59 Bed 6 Private MD: ED Physician Wyatt Varghese HPI: 08/31 09:20 This 38 yrs old Female presents to ER via Unassigned with complaints of Hemorrhoids, 32 rn weeks . 09:20 The patient presents to the emergency department with pain in the rectal area. Onset: rn The symptoms/episode began/occurred. 09:21 Onset: The symptoms/episode began/occurred 3 day(s) ago. Modifying factors: The rn symptoms are alleviated by nothing, The symptoms are aggravated by sitting position. The patient has experienced a previous episode. Patient reports approximately 32 weeks . Over the last few days has been having rectal pain that she attributes to hemorrhoids. Is not constipated lately and having normal bowel movements. No bleeding. Patient has tried sitz bath's and Preparation H without much help.. 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 - Social history:: Smoking status: Patient denies any tobacco usage or history of. - Family history:: not pertinent. - Hospitalizations: : No recent hospitalization is reported. ROS: 09:21 Constitutional: Negative for fever, chills, and weight loss, Cardiovascular: Negative rn for chest pain, palpitations, and edema, Respiratory: Negative for shortness of breath, cough, wheezing, and pleuritic chest pain, Abdomen/GI: Negative for abdominal pain, nausea, vomiting, diarrhea, and constipation, MS/Extremity: Negative for injury and deformity, Skin: Negative for injury, rash, and discoloration, Neuro: Negative for headache, weakness, numbness, tingling, and seizure, Exam: 09:21 Constitutional: This is a well developed, well nourished patient who is awake, alert, rn and in no acute distress. 09:58 Abdomen/GI: Patient with large 1 cm diameter hemorrhoid with signs of very early rn thrombosis. Has small bluish dot on most proximal portion, distal portion still soft, no active bleeding. No evidence of perirectal abscess., Vital Signs: 09:21 BP 132 / 83; Pulse 90; Resp 18; Temp 97.6(O); Pulse Ox 100% ; Weight 117.93 kg; Height ap3 5 ft. 6 in. ; Pain 9/10; 10:07 BP 126 / 78; Pulse 85; Resp 15; Pulse Ox 99% ; ko1 09:21 Body Mass Index 41.96 (117.93 kg, 167.64 cm) ap3 09:21 Pain Scale: Adult ap3 MDM: 09:06 Patient medically screened. rn 09:58 Differential diagnosis: hemorrhoids, Thrombosed hemorrhoid. Data reviewed: vital signs, rn nurses notes, and as a result, I will discharge patient. Counseling: I had a detailed discussion with the patient and/or guardian regarding the historical points, exam findings, and any diagnostic results supporting the discharge/admit diagnosis, the need for outpatient follow up, to return to the emergency department if symptoms worsen or persist or if there are any questions or concerns that arise at home. ED course: Patient with suspected early thrombosed hemorrhoid. Will DC home with topical steroid cream, sitz bath's, warm compresses, stool softeners, hydration. Will give follow-up with general surgery and recommend contacting her OB doctor in case topical cream does not help her and becomes completely thrombosed. Return precautions given and understood.. 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
--- NOTE | 2023-08-31 10:00 | ER ---
Nurse's Notes [facility] Name: Araceli Min Age: 38 yrs Sex: Female : 1985 Arrival Date: 08/31/2023 Time: 08:59 Bed 6 Private MD: Diagnosis: Hemorrhoids, early thrombosis Presentation: 08/31 09:21 Chief complaint: Patient states: she has been having an hemorrhoid since Wednesday that ap3 has grown in both size and pain. patient states her pain is currently a 9/10 on the pain scale. Coronavirus screen: At this time, the client does not indicate any symptoms associated with coronavirus-19. Ebola Screen: No symptoms or risks identified at this time. Initial Sepsis Screen: Does the patient meet any 2 criteria? HR > 90 bpm. Yes Does the patient have a suspected source of infection? No. Patient's initial sepsis screen is negative. Risk Assessment: Do you want to hurt yourself or someone else? Patient reports no desire to harm self or others. Onset of symptoms was August 29, 2023. 09:21 Method Of Arrival: Ambulatory ap3 09:21 Acuity: REGINA 4 ap3 Triage Assessment: 09:23 General: Appears in no apparent distress. Behavior is calm, cooperative. Pain: ap3 Complains of pain in buttocks Pain currently is 9 out of 10 on a pain scale. Neuro: Level of Consciousness is awake, alert, obeys commands, Oriented to person, place, time, situation. Cardiovascular: Patient's skin is warm and dry. Respiratory: Airway is patent Respiratory effort is even, unlabored, Respiratory pattern is regular, symmetrical. GI: Reports hemorrhoids. 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 - Social history:: Smoking status: Patient denies any tobacco usage or history of. - Family history:: not pertinent. - Hospitalizations: : No recent hospitalization is reported. Screenin:24 [facility] ED Fall Risk Assessment (Adult) History of falling in the last 3 months, ap3 including since admission No falls in past 3 months (0 pts). Abuse screen: Denies threats or abuse. Nutritional screening: No deficits noted. Tuberculosis screening: No symptoms or risk factors identified. Assessment: 09:35 Reassessment: Patient appears in no apparent distress at this time. Patient and/or ph family updated on plan of care and expected duration. Pain level reassessed. Patient is alert, oriented x 3, equal unlabored respirations, skin warm/dry/pink. 09:35 General: Appears in no apparent distress. uncomfortable, well groomed, Behavior is ph calm, cooperative, appropriate for age. Pain:. Pain: Complains of pain in anus. Neuro: Level of Consciousness is awake, alert, obeys commands, Oriented to person, place, time, situation. Cardiovascular: Capillary refill < 3 seconds in bilateral fingers Patient's skin is warm and dry. Respiratory: Airway is patent Respiratory effort is even, unlabored. Derm: Skin is pink, warm \T\ dry. Vital Signs: 09:21 BP 132 / 83; Pulse 90; Resp 18; Temp 97.6(O); Pulse Ox 100% ; Weight 117.93 kg; Height ap3 5 ft. 6 in. ; Pain 9/10; 10:07 BP 126 / 78; Pulse 85; Resp 15; Pulse Ox 99% ; ko1 09:21 Body Mass Index 41.96 (117.93 kg, 167.64 cm) ap3 09:21 Pain Scale: Adult ap3 ED Course: 09:02 Patient arrived in ED. im 09:06 Wyatt Varghese MD is Attending Physician. rn 09:22 Triage completed. ap3 09:24 Arm band placed on right wrist. ap3 09:24 Patient has correct armband on for positive identification. Placed in gown. Bed in low ap3 position. Call light in reach. Side rails up X 1. Adult w/ patient. 09:35 Annalee Hidalgo, RN is Primary Nurse. ph 09:35 Served as a agency trainer during rectal exam. ph 09:37 Patient did not have IV access during this emergency room visit. ph 10:07 Provided Education on: na. ko1 Administered Medications: No medications were administered Medication: 09:37 VIS not applicable for this client. ph Outcome: 10:00 Discharge ordered by . rn 10:21 Discharged to home ambulatory, with significant other, ph 10:21 Condition: good 10:21 Discharge instructions given to patient, Instructed on discharge instructions, follow up and referral plans. medication usage, Demonstrated understanding of instructions, follow-up care, medications, Prescriptions given X 1, 10:22 Patient left the ED. ph Signatures: Wyatt Varghese MD MD rn Hall, Patricia RN RN Anel Cabrera RN RN [email or web address] Aline Valiente RN RN ko1 Bing Norman
[2023-08-31 10:50] VITALS: BP 126/78; TEMP 97.6; O2SAT 99
== END ==
LOC: ER 08:59
DX: O22.43 Hemorrhoids in pregnancy, third trimester (principal); Z3A.32 32 weeks gestation of pregnancy
CPT/HCPCS: 99283